=== PATIENT | male | born 1990 | race African-American/Black ===

== ENCOUNTER 2021-12-26 20:15 | Emergency (ER) | payer OTHER, MEDICAID, SELFPAY ==
[2021-12-26 20:37] VITALS: BP 136/72; PULSE 94; RESP 20; TEMP 37; O2SAT 98
[2021-12-26] MEDS: ACETAMINOPHEN 500 MG TABLET 1000 MG PO (22:26)
[2021-12-26 22:38] LABS: Basophils Percent Auto 0.3 % (0.2-1.2); Eosinophils Absolute Auto 0.1 K/mm3 (0-0.3); Eosinophils Percent Auto 0.6 % (0-4.4); Hematocrit 43.3 % (42.0-52.0); Hemoglobin 13.2 g/dL (14.0-18.0); Immature Granulocyte Absolute 0.06 K/mm3 (0.00-0.031); Immature Granulocyte Percent A 0.6 % (0-0.5); Lymphocytes Absolute Auto 1.53 K/mm3 (0.9-3.2); Lymphocytes Percent Auto 14.1 % (18.3-44.2); Mean Corpuscular HGB Conc 30.5 g/dl (32-36); Mean Corpuscular Hemoglobin 26.8 pg (26-34); Mean Corpuscular Volume 87.8 fl (80-100); Monocytes Absolute Auto 0.7 K/mm3 (0.1-0.6); Monocytes Percent Auto 6.6 % (2.6-8.5); Neutrophils Absolute Auto 8.4 K/mm3 (1.3-6.7); Neutrophils Percent Auto 77.8 % (45.5-73.1); Platelet Count Result 271 k/mm3 (150-375); Red Blood Count 4.93 M/mm3 (4.6-6.20); Red Cell Distribution Width 13.3 % (11.5-14.5); White Blood Count 10.8 K/mm3 (4.5-10.0)
--- NOTE | 2021-12-26 22:56 | ED.GENADULT ---
HPI - General Adult General Chief complaint: Unspecified Stated complaint: flu like symptoms Time Seen by Provider: 12/26/21 22:02 History of Present Illness HPI narrative: Patient is a 31-year-old male here for evaluation of chills and fatigue for the past 3 hours. Patient states that he was at work when he started to feel unwell. Also notes mild frontal headache x 2 hours, but no visual changes, neck pain or stiffness. States feels typical of previous headaches. He has not taken any medication for his symptoms. States that he feels dehydrated. He has not taken a COVID test. Denies nausea, vomiting, chest pain, shortness of breath, rhinorrhea, cough, abdominal pain or urinary symptoms. Related Data Allergies Allergy/AdvReac Type Severity Reaction Status Date / Time No Known Allergies Allergy Verified 12/26/21 20:43 Review of Systems Review of Systems: Gen: Reports chills Eyes: Denies eye pain or visual change ENT: Denies congestion Respiratory: Denies shortness of breath or cough CV: Denies chest pain or palpitations GI: Denies abdominal pain nausea, emesis or diarrhea denies burning, urgency, frequency or hematuria Musculoskeletal: Denies back pain or muscle pain Neuro: reports headache. Denies numbness, tingling, weakness or focal weakness Skin: Denies rash Except as documented, all other systems reviewed and negative Exam Narrative: APPEARANCE: Well appearing, no pain in distress, well-nourished. Head: Normocephalic and atraumatic. EYES: PERRLA/EOMI, conjunctivae clear NOSE: No nasal drainage EARS: External ear normal in appearance THROAT: Oropharynx is clear. Mucous membranes are moist. NECK: Supple; no meningismus. No adenopathy, no masses. RESPIRATORY: Airway patent, respirations nonlabored. Clear to auscultation bilaterally, no rales, rhonchi, wheezing. CARDIOVASCULAR: Regular rate and rhythm without murmurs, rubs, or gallops. ABDOMINAL: Normoactive bowel sounds. Soft, nontender, nondistended. No rebound tenderness or guarding. MUSCULOSKELETAL: Extremities are warm and well-perfused. Moves all extremities well. No edema. NEURO: Normal speech. No focal neurologic deficits. SKIN: Skin is warm and dry. No rashes. PSYCHIATRIC: Normal affect/mood. Course Vital Signs Vital signs: Vital Signs Temperature 98.6 F 12/26/21 20:37 Pulse Rate 94 12/26/21 20:37 Respiratory Rate 20 12/26/21 20:37 Blood Pressure 136/72 12/26/21 20:37 Pulse Oximetry 98 12/26/21 20:37 Oxygen Delivery Room Air 12/26/21 20:37 Temperature 98.6 F 12/26/21 20:37 Pulse Rate 65 12/27/21 00:25 Respiratory Rate 18 12/27/21 00:25 Blood Pressure 151/72 H 12/27/21 00:25 Pulse Oximetry 96 12/27/21 00:25 Oxygen Delivery Room Air 12/26/21 20:37 Medical Decision Making MDM Narrative Medical decision making narrative: 31-year-old male here for evaluation of chills and note slight frontal headache for the past several hours. Here he is nontoxic-appearing, his vital signs are normal, he has no cranial nerve deficits on exam and also no meningismus. He was given Tylenol for his headache with improvement of his symptoms. COVID test negative. His basic labs are unremarkable for acute process. Patient states that his symptoms are likely due to not eating, he felt totally resolved after eating chips in the emergency department. He was given reasons to return to the emergency department and he voiced understanding. Vital Signs Vital Signs: Vital Signs Temperature 98.6 F 12/26/21 20:37 Pulse Rate 94 12/26/21 20:37 Respiratory Rate 20 12/26/21 20:37 Blood Pressure 136/72 12/26/21 20:37 Pulse Oximetry 98 12/26/21 20:37 Oxygen Delivery Room Air 12/26/21 20:37 Temperature 98.6 F 12/26/21 20:37 Pulse Rate 65 12/27/21 00:25 Respiratory Rate 18 12/27/21 00:25 Blood Pressure 151/72 H 12/27/21 00:25 Pulse Oximetry 96 12/27/21 00:25 Oxygen Delivery Room Air 12/26/21 20:37
[2021-12-26 22:58] LABS: Alanine Aminotransferase 32 U/L (6-50); Albumin Level 4.2 g/dL (3.5-5.1); Alkaline Phosphatase 205 U/L (38-126); Anion Gap 9 mmol/L (8-16); Aspartate Amino Transferase 34 U/L (17-59); Bilirubin,Total 1.4 mg/dL (0.2-1.3); Blood Urea Nitrogen 11 mg/dL (9-20); Carbon Dioxide 30 mmol/L (22-30); Chloride 98 mmol/L (98-107); Estimated CRCL calculation 147 ml/min; Estimated Glomerular Filt Rate > 60; Glucose 109 mg/dL (65-110); Potassium 4.2 mmol/L (3.4-5.0); Sodium 137 mmol/L (137-145)
[2021-12-26 23:55] LABS: SARS-CoV-2 RNA PCR Negative
[2021-12-27 00:25] VITALS: BP 151/72; PULSE 65; RESP 18; O2SAT 96
== END 2021-12-27 00:26 | disposition home or self-care (01) ==
PROVIDERS: Physician Assistant; Emergency Provider Emergency Medicine; PCP Internal Medicine
DX: R53.83 Other fatigue (principal); Z20.822 Contact with and (suspected) exposure to COVID-19
CPT/HCPCS: 36415; 80053; 85025; 99283; A9270; C9803; U0003; U0005

== ENCOUNTER 2024-03-30 22:35 | Emergency (ER) | payer OTHER, MEDICAID, SELFPAY ==
[2024-03-30 22:46] VITALS: BP 155/101; PULSE 87; RESP 20; TEMP 36.4; O2SAT 97
[2024-03-30 22:54] LABS: Add Urine Microscopic? YES; Appearance Urine Clear (Clear); Bacteria Urine None Seen /hpf; Bilirubin Urine Negative (Negative); Blood Urine Negative (Negative); Color Urine Dark Yellow (Yellow); Glucose Urine UA Negative (Negative); Ketones Urine 1+ mg/dL (Negative); Leukocyte Esterase Ur Negative LEU/UL (Negative); Nitrate Urine Negative (Negative); Non Pathogenic Casts 0-2; Protein Urine Trace mg/dL (Negative); RBC Urine 0-2 /hpf (0-2); Specific Grav Ur 1.028 (1.001-1.035); Squamous Epithelial Cell Urine None Seen /hpf (Few); WBC Urine 0-5 /hpf (0-3); pH Urine 5.5 (5.0-9.0)
--- NOTE | 2024-03-31 00:20 | PC.NURSE ---
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 This rn informed he is welcome to be see anytime as we are open 22/12
[2024-03-31 02:15] LABS: Chlamydia trachomatis NOT DETECTED (NOT DETECTE); Neisseria gonorrhoeae PCR NOT DETECTED (NOT DETECTE)
== END 2024-03-31 00:34 | disposition left against medical advice (07) ==
PROVIDERS: Emergency Provider Emergency Medicine; PCP Internal Medicine
DX: R82.90 Unspecified abnormal findings in urine (principal)
CPT/HCPCS: 81001; 87491; 87591; 99199

== ENCOUNTER 2024-03-31 22:33 | Emergency (ER) | payer MEDICAID, SELFPAY | END 2024-03-31 23:14 | disposition left against medical advice (07) | LOC: ANHED 22:40 | PROVIDERS: PCP Internal Medicine | DX: Z53.21 Procedure and treatment not carried out due to patient leaving prior to being seen by health care provider (principal) | CPT/HCPCS: 99199 ==

== ENCOUNTER 2024-04-11 22:18 | Emergency (ER) | payer MEDICAID, SELFPAY ==
[2024-04-11 22:34] VITALS: BP 147/90; PULSE 87; RESP 15; TEMP 36.8; O2SAT 98
--- NOTE | 2024-04-11 22:38 | PC.NURSE ---
pt on standing scale. pt 179.9 kg
--- NOTE | 2024-04-11 23:50 | PC.NURSE ---
Pt approaches triage desk asking how many people are in front of him, I have been waiting awhile . RN educates pt on triage process and how we have to go based off pt acuity levels. Pt then rips off his wristband and states that he be taken off our system and walks out.
== END 2024-04-12 00:06 | disposition left against medical advice (07) ==
LOC: ANHED 04-12 00:05
PROVIDERS: PCP Internal Medicine
DX: R51.9 Headache, unspecified (principal)
CPT/HCPCS: 99199